=== PATIENT | female | born 1980 | race Caucasian/White ===

== ENCOUNTER 2017-10-27 11:14 | Emergency (ER) | payer SELFPAY ==
[~2017-10-27] VITALS: Ht 167.6 cm; Wt 74.8 kg
[2017-10-27 11:31] VITALS: BP 161/93
--- NOTE | 2017-10-27 11:34 | NUR ---
PT GIVEN URINE CUP
--- NOTE | 2017-10-27 11:34 | NUR ---
PT BACK TO LOBBY, WITH STEADY GAIT;VSS
--- NOTE | 2017-10-27 11:58 | NUR ---
PT AMBULATED TO ER BED 07
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
[2017-10-27] MEDS ORDERED: NACL 0.9% 1,000 ML IV SCH (12:32)
[2017-10-27] MEDS ORDERED: diphenhydrAMINE 50 MG/ML VIAL IVP ONE (12:35)
[2017-10-27] MEDS ORDERED: MORPHINE SULFATE 2 MG/ML SYR IM ONE (12:35)
[2017-10-27] MEDS ORDERED: MORPHINE SULFATE 2 MG/ML SYR IVP ONE (12:45)
[2017-10-27] MEDS ORDERED: MORPHINE SULFATE 4 MG/ML SYR ONE (12:46)
--- NOTE | 2017-10-27 13:00 | NUR ---
LAB AT BEDSIDE.
--- NOTE | 2017-10-27 13:04 | NUR ---
PT TAKEN TO CT VIA [facility] ACCOMPANIED BY FAMILY AND MARRIAGE COUNSELLOR.
[2017-10-27 13:05] LABS: BASOPHILS % (AUTO) 0.6 % (0.0-2.0); EOSINOPHILS % (AUTO) 0.2 % (0.0-4.0); HEMATOCRIT 25.6 % (36-48); HEMOGLOBIN 7.4 g/dL (12.0-16.0); LYMPHOCYTES # (AUTO) 1.2 K/uL (2.5-16.5); LYMPHOCYTES % (AUTO) 21.4 % (20.5-51.1); MEAN CORPUSCULAR HEMOGLOBIN 20 pg (27-31); MEAN CORPUSCULAR HGB CONC 29 g/dL (33-37); MEAN CORPUSCULAR VOLUME 69.3 fL (80-94); MONOCYTES # (AUTO) 0.3 K/uL (0.8-1.0); NEUTROPHILS # (AUTO) 3.9 K/uL (1.8-7.7); NEUTROPHILS % (AUTO) 71.8 % (42.2-75.2); PLATELET COUNT (AUTO) 330 K/uL (140-450); RED BLOOD CELL COUNT(AUTO) 3.69 MIL/uL (4.20-5.40); RED CELL DISTRIBUTION WIDTH 20.2 % (11.6-13.7); WHITE BLOOD COUNT (AUTO) 5.4 K/uL (4.8-10.8)
[2017-10-27 13:20] LABS: ALBUMIN 3.9 g/dL (3.4-5.0); ANION GAP 11.5 (8-16); CARBON DIOXIDE 29.3 mmol/L (21-32); CREATININE 0.6 mg/dL (0.6-1.3); POTASSIUM 3.8 mmol/L (3.5-5.1); TOTAL BILIRUBIN 0.3 mg/dL (0.0-1.0)
[2017-10-27 13:49] LABS: APPEARANCE,URINE CLEAR (CLEAR); BILIRUBIN,URINE NEGATIVE (NEGATIVE); BLOOD, URINE NEGATIVE (NEGATIVE); COLOR,URINE YELLOW (YELLOW); LEUKOCYTE ESTERASE ,URINE TRACE (NEGATIVE); NITRITE, URINE NEGATIVE (NEGATIVE); PH,URINE 7.5 (5.0-9.0); UGLUCOSE NEGATIVE (NEGATIVE)
[2017-10-27 14:00] LABS: RBC,URINE 0-5 (RARE) /HPF (0-5); WBC,URINE 0-5 (RARE) /HPF (0-5)
[2017-10-27 14:57] VITALS: BP 131/87
--- NOTE | 2017-10-27 14:57 | NUR ---
Patient discharged with v/s stable. Written and verbal after care instructions given and explained. Patient alert, oriented and verbalized understanding of instructions. Ambulatory with steady gait. All questions addressed prior to discharge. ID band removed. Patient advised to follow up with PMD. Rx of MOTRIN & TRAMADOL given. Patient educated on indication of medication including possible reaction and side effects. Opportunity to ask questions provided and answered.
== END 2017-10-27 14:57 | disposition home or self-care (01) ==
LOC: MED 11:14
DX: S20.212A Contusion of left front wall of thorax, initial encounter (principal); D50.9 Iron deficiency anemia, unspecified; Z88.5 Allergy status to narcotic agent; Z90.49 Acquired absence of other specified parts of digestive tract; X58.XXXA Exposure to other specified factors, initial encounter; Y93.89 Activity, other specified; Y92.89 Other specified places as the place of occurrence of the external cause; Y99.8 Other external cause status
CPT/HCPCS: 36415; 71250; 74176; 80053; 81001; 81025; 82150; 83690; 84703; 85025; 96361; 96374; 96375; 99285; J1200; J2270